=== PATIENT | female | born 1950 | race Caucasian/White ===

== ENCOUNTER 2019-07-05 17:19 | Inpatient (IN) | payer OTHER ==
[~2019-07-05] VITALS: Ht 160 cm; Wt 61.9 kg
[2019-07-05 17:31] VITALS: BP 167/78
[2019-07-05] MEDS ORDERED: COZAAR 25 MG TA25 M1 PO (17:34)
[2019-07-05 18:58] LABS: ABSOLUTE EOSINOPHILS 0.1 thou/uL (0.0-0.7); ABSOLUTE LYMPHOCYTES 1.1 thou/uL (0.8-5.3); ABSOLUTE MONOCYTES 0.6 thou/uL (0.0-1.2); BASOPHILS 0.4 %; EOSINOPHILS 2.2 %; HEMATOCRIT 46.8 % (37.0-47.0); HEMOGLOBIN 15.7 gm/dL (12.0-15.0); LYMPHOCYTES 19.4 %; MCH 30.2 pg (26.0-34.0); MCHC 33.5 g/dL (28.0-37.0); MCV 90.2 fL (80.0-100.0); MONOCYTES 9.5 %; NUCLEATED RBCS 0 /100WBC; PLATELET COUNT* 193 thou/uL (150-400); POLYS 68.5 %; RBC 5.19 mil/uL (4.20-5.00); RDW-CV 14.4 % (10.5-14.5); WBC 5.9 thou/uL (4.0-11.0)
[2019-07-05 19:04] LABS: ANION GAP 11 mmol/L (7-16); BUN 23 mg/dL (7-18); CALCIUM 8.9 mg/dL (8.5-10.1); CHLORIDE 105 mmol/L (98-107); CO2 26 mmol/L (21-32); CREATININE 0.9 mg/dL (0.6-1.3); GLUCOSE 99 mg/dL (70-99); POTASSIUM 4.2 mmol/L (3.5-5.1); SODIUM 142 mmol/L (136-145)
[2019-07-05 19:14] LABS: ALBUMIN 4.3 g/dL (3.4-5.0); ALKALINE PHOSPHATASE 89 U/L (46-116); SGOT 19 U/L (15-37); SGPT 27 U/L (30-65); TOTAL BILIRUBIN 0.7 mg/dL (<0.1-1.0); TOTAL PROTEIN 7.4 g/dL (6.4-8.2); TROPONIN-I LEVEL <0.06 ng/mL (<0.06)
[2019-07-05 19:30] VITALS: BP 167/78
[2019-07-05 19:40] VITALS: BP 141/81
[2019-07-06 04:00] VITALS: BP 125/61
--- NOTE | 2019-07-06 05:45 | NUR ---
Admission at 1930 last evening. She has a L ankle fracture. L ankle is splinted and acewrapped. VItals are stable. She only takes tylenol ES and ibuprofen for pain. I have been alternating the 2,giving something every 3 hours. She rates pain at 4/10. Dr Norris (ortho) was notified in the ED yesterday by ED staff of the consult. She has had nothing by mouth since midnight except for meds with a small sip of water.
[2019-07-06 07:40] VITALS: BP 131/71
[2019-07-06 12:01] VITALS: BP 131/71
[2019-07-06 12:17] VITALS: BP 131/71
--- NOTE | 2019-07-06 12:37 | NUR ---
PT LEFT FOR SURGERY. WILL CONTINUE TO MONITOR,
--- NOTE | 2019-07-06 13:42 | NUR ---
SW met with pt to complete initial assessment, introduce self, and SW role. Pt lives at home alone but has boyfriend and a son who live closeby and are supportive and available to assist if/when needed. SW discussed possible need for crutches and pt also wondered if she may be able to have knee scooter instead of crutches? SW to continue to follow to assist with safe dc planning.
--- NOTE | 2019-07-06 17:03 | NUR ---
PT REMAINED ALERT AND ORIENTED. PT RESTING IN BED. PAIN MINIMAL, PAIN MEDS GIVEN ORDERED. FALL RISK PRECAUTIONS IN PLACE. HOURLY ROUNDING COMPLETED. WILL CONTINUE TO MONITOR.
[2019-07-07] VITALS (7 sets, daily range): BP systolic 125–128; BP diastolic 62–76
[2019-07-07 04:18] LABS: CALCIUM 8.6 mg/dL (8.5-10.1); CREATININE 0.7 mg/dL (0.6-1.3); POTASSIUM 4.1 mmol/L (3.5-5.1)
[2019-07-07 04:25] LABS: HEMATOCRIT 38.4 % (37.0-47.0); MCHC 33.5 g/dL (28.0-37.0); MCV 89.6 fL (80.0-100.0); MPV 9.3 fl. (7.2-11.1); RBC 4.29 mil/uL (4.20-5.00); RDW-CV 14.2 % (10.5-14.5); WBC 6.8 thou/uL (4.0-11.0)
[2019-07-07 04:33] LABS: HEMOGLOBIN 12.9 gm/dL (12.0-15.0)
--- NOTE | 2019-07-07 05:31 | NUR ---
PATIENT SLEPT OFF AND ON DURING THIS SHIFT. CONTINUOUS SAT MONITOR CONTINUED TO ALARM. PT SAID HER HEART RATE DROPS WHEN SHE IS SLEEPING. RT ADJUSTED THE CONTINUOUS SAT MONITOR TWICE PER PT'S REQUEST. PT'S HR GETS DOWN TO 40BPM. PT SAYS THIS IS NORMAL FOR HER BECAUSE SHE IS VERY ACTIVE AND HEALTHY. PT UP TO BSC WITH STANDBY ASSIST. PT GIVEN PAIN MEDICATION X2 FOR PAIN. FLUIDS/ANTIBIOTICS INFUSING PER DR ORDER. PT'S IV WENT BAD AND PT REFUSING A NEW IV STATING SHE WILL BE GOING HOME THIS AM. NO IV STARTED. FREQUENTLY USED ITEMS AND CALL LIGHT WITHIN REACH. SIDERAILS UPX2. WILL CONTINUE TO MONITOR.
[2019-07-07] MEDS ORDERED: ASPIRIN325 PO (09:41)
[2019-07-07] MEDS ORDERED: COLACE100 MG PO (09:43)
[2019-07-07] MEDS ORDERED: TYLENOL EXTRA500 MG PO (09:43)
[2019-07-07] MEDS ORDERED: DULCOLAX5 MG PO (09:44)
[2019-07-07] MEDS ORDERED: BENADRYL25 MG PO (09:44)
[2019-07-07] MEDS ORDERED: IBU600 MG PO (09:45)
[2019-07-07] MEDS ORDERED: MELATONIN5 M4 PO (09:46)
--- NOTE | 2019-07-07 11:38 | NUR ---
PT GIVEN DISCHARGE INFORMATION, CARE NOTES, AND PRESCRIPTIONS. IV RMOEVED DURING THE NIGHT. PT WANTED TO LEAVE PRIOR TO HEARING [facility] INSURANCE APPROVAL. PT LEFT VIA WHEELCHAIR WITH NURSING STAFF TO HOME. FALL RISK PRECAUTIONS IN PLACE. HOURLY ROUNDING COMPLETED.
--- NOTE | 2019-07-07 12:11 | NUR ---
PROSPER spoke with pt prior to pt dc about knee scooter and dc plan for today. Pt boyfriend to pick pt up and pt was wanting to leave regardless of whether or not knee scooter was readily available. Pt said she would be able to use a neighbors RW until she bought one on her own but wanted to also make sure her insurance was not goint to cover the cost of the knee scooter. PROSPER provided information to [employer] who is still checking on pt insurance to determine if the DME would be covered or not. PROSPER called pt and left voice message with pt of [employer] number for pt to be able to follow up. PROSPER provided pt with options from [employer] if pt wanted to rent or buy from them as well as [facility] [employer]...pt said she found one on [address] that was cheaper than the other options. No other dc needs expressed. Pt plans to return for appt on Saturday and said that at that point, she would discuss when and if she would need PT.
--- NOTE | 2019-07-07 14:50 | EKG ---
[place] [address] ELECTROCARDIOGRAM REPORT Name: ALMA RODRIGUEZNAKIA Lai Room: [address] IN .R.#: [id number] Admission: 07/05/19 Attend Phys: Liban Finley MD Discharge: 07/07/19 Date of : 54 Report #: [id number] THIS REPORT FOR: //name// [facility] ED Test Date: 2019-07-05 Test Time: 18:38:44 Pat Name: ADA RODRIGUEZ Department: Room: [facility] Gender: F Pit Clerk: SHIRA : 1950 Requested By: Cody Bernstein Order Number: [id number] MD: Tang Troncoso Measurements Intervals Edroy Rate: 60 P: 10 ID: 130 QRS: 1 QRSD: 95 T: 17 QT: 410 QTc: 410 Interpretive Statements Sinus rhythm No previous ECG available for comparison Electronically Signed On 07-07-2019 14:50:17 CDT by Tang Troncoso [email or web address] <ELECTRONICALLY SIGNED> By: Tang Troncoso MD, [facility] 07/07/19 1450 D: [id number] Tang Troncoso MD, FACC /EPI
--- NOTE | 2019-07-10 11:54 | OP ---
[address] [address] OPERATIVE REPORT Name: ADA RODRIGUEZ Room: [address] IN .R.#: [id number] Admission: 07/05/19 Attend Phys: Liban Finley MD Discharge: 07/07/19 Date of : 54 Report #: [id number] THIS REPORT FOR: //name// CC: Serjio Finley DATE OF SERVICE: 07/06/2019 PREOPERATIVE DIAGNOSIS: Closed trimalleolar fracture, left ankle. POSTOPERATIVE DIAGNOSIS: Closed trimalleolar fracture, left ankle. OPERATIONS PERFORMED: 1. Open reduction and internal fixation of trimalleolar fracture, left ankle without fixation of posterior lip. 2. Physician directed fluoroscopy under one hour by Dr. Paez. SURGEON: Dickson Paez DO TYPIST: Juan Rollins DO SEC[employer] PLANT TECHNICIAN: Ghulam Mixon DO GROSS PATHOLOGY: There was evidence of a trimalleolar fracture of the left ankle. The fracture was closed. The patient does have edema blisters in the medial malleolar region, but not in the area of the planned surgical incision as well as in the shaft of the fibular region. Again, not in the area of the planned surgical site. The patient had a normal wrinkle test. There was no evidence of diastasis. The cotton test was negative for diastasis. IMPLANTS UTILIZED: Romulo ankle fixation set. DESCRIPTION OF PROCEDURE: The patient was brought to the operating room where spinal block anesthetic was performed. A Hibiclens scrub and a ChloraPrep, prep were done to the left leg. Preoperative antibiotics were given after the draping was completed. An incision was then made approximately 3-1/2 inches in length on the distal aspect of the left fibula. It was carried down through the skin and subcuticular material by sharp dissection. By sharp and blunt dissection, the fracture site was identified. Comminution was noted. It was reduced, held in place with a clamp and viewed with the C-arm and noted to be in acceptable position. The distal fibular plate was placed in position and again held in place as well as viewed and noted to be in good position in the fracture site. The plate was then fixed with locking screws distally and cortical screws proximally with some screw holes left open due to the proximity of the fracture site. The cotton test was performed as well as stressing the ankle mortise and no evidence of a diastasis. Attention was then turned to [place] [id number] OPERATIVE REPORT Name: ALMA RODRIGUEZNAKIA Lai Room: [address] IN [facility]#: [id number] Admission: 07/05/19 Attend Phys: Liban Finley MD Discharge: 07/07/19 Date of : 54 Report #: [id number] where it was reduced, held in place. A K-wire was then inserted into the medial malleolus into the distal shaft of the tibia, again viewed with the C-arm and noted to be in acceptable position. Measurements were taken. The outer cortex was reamed and the 4-0 cancellous screw was placed over the guidewire to the appropriate depth. The final visualization revealed an acceptable position of the implants and fracture site and the K-wire was then removed and final pictures taken confirming good position of the fracture sites and implant devices. Upon fixation of the fibular fracture, the posterior malleolar fragment reduced well. The deep tissues were closed with odd Vicryl suture, subcutaneous with 2-0 Vicryl, and interrupted 3-0 nylon on the skin. The area was anesthetized with Marcaine 0.5% plain, approximately 30 mL. Sterile dressings were applied. The patient was transferred to the recovery room in good condition with Emeterio Navarro dressing and splints in place. <ELECTRONICALLY SIGNED> By: Willie Capellan DO 07/10/19 1154 [id number] 1944Dickson Paez DO /nt
== END 2019-07-07 11:39 | disposition home or self-care (01) | DRG 493 ==
LOC: M.ERS 17:19 → M.ORTHSURG 18:42 → M.TBA-ER 18:42 → M.ORTHSURG 19:35
PROVIDERS: Emergency Medicine Emergency Medical Services; Internal Medicine; ADMIT Internal Medicine
PROC: 0QSK04Z Reposition Left Fibula with Internal Fixation Device, Open Approach (ICD-10-PCS; principal; 2019-07-06)
PROC: 0QSH04Z Reposition Left Tibia with Internal Fixation Device, Open Approach (ICD-10-PCS; principal; 2019-07-06)
DX: S82.852A Displaced trimalleolar fracture of left lower leg, initial encounter for closed fracture (principal); R71.0 Precipitous drop in hematocrit; E78.00 Pure hypercholesterolemia, unspecified; I10 Essential (primary) hypertension; E86.0 Dehydration; R79.89 Other specified abnormal findings of blood chemistry; Z88.8 Allergy status to other drugs, medicaments and biological substances; Z88.6 Allergy status to analgesic agent; Z79.899 Other long term (current) drug therapy; Z90.710 Acquired absence of both cervix and uterus; Z98.1 Arthrodesis status; Z80.8 Family history of malignant neoplasm of other organs or systems; V89.9XXA Person injured in unspecified vehicle accident, initial encounter; Y93.89 Activity, other specified; Y92.89 Other specified places as the place of occurrence of the external cause; Y99.8 Other external cause status